=== PATIENT | female | born 1980 | race Caucasian/White ===

== ENCOUNTER 2018-11-11 17:23 | Emergency (ER) | payer SELFPAY ==
[~2018-11-11] VITALS: Ht 165.1 cm; Wt 49.9 kg
[~2018-11-11 17:23] MED LIST: AZIT250T PO; BENZ100C PO; CEPH-264 PO; GUAI600T47 PO; PRED20TA PO; PROM118S5 PO; TRAM-48 PO
[2018-11-11] MEDS ORDERED: diphenhydrAMINE 50 MG/ML VIAL IVP ONE (18:00)
[2018-11-11] MEDS ORDERED: DEXAMETHASONE SOD PHOS 10 MG/ML VIAL IV ONE (18:00)
[2018-11-11] MEDS ORDERED: METOCLOPRAMIDE HCL 10 MG/2 ML VIAL. IV ONE (18:00)
[2018-11-11] MEDS ORDERED: IV NORMAL SALINE 1,000ML 1,000 ML IV ONE (18:00)
[2018-11-11] MEDS ORDERED: KETOROLAC 15 MG/ML VIAL. IV ONE (18:00)
[2018-11-11 18:15] LABS: BILIRUBIN,URINE NEG (NEG); CLARITY,URINE CLOUDY; COLOR,URINE YELLOW; GLUCOSE,URINE NEG (NEG)
[2018-11-11 18:16] LABS: NITRITE,URINE POS (NEG); UROBILINOGEN,URINE 0.2 mg/dL (0.2 mg/dL)
[2018-11-11 18:17] LABS: BACTERIA,URINE MANY /HPF (0-FEW); SQUAMOUS EPITHELIAL CELL,UR OCC /LPF; WBC,URINE TNTC /HPF (0-4)
[2018-11-11 18:18] LABS: BASO % 0 % (0-3); EOS % 0 % (0-3); HEMATOCRIT 38.4 % (36.0-47.0); HEMOGLOBIN 13.1 g/dL (12.0-15.5); LYMPH # 0.9 x10^3/uL (1.0-4.8); LYMPH % 8 % (24-48); MEAN CORPUSCULAR HEMOGLOBIN 34 pg (25-35); MEAN CORPUSCULAR HGB CONC 34 g/dL (31-37); MEAN CORPUSCULAR VOLUME 100 fL (79-100); MONO # 2.1 x10^3/uL (0.0-1.1); MONO % 17 % (0-9); NEUT # 9.3 x10^3uL (1.8-7.7); NEUT % 75 % (31-73); PLATELET COUNT 127 x10^3/uL (140-400); RED BLOOD COUNT 3.84 x10^6/uL (3.50-5.40); RED CELL DISTRIBUTION WIDTH 13.2 % (11.5-14.5); WHITE BLOOD COUNT 12.4 x10^3/uL (4.0-11.0)
--- NOTE | 2018-11-11 18:21 | PHYS DOC ---
Past History Past Medical History: No Pertinent History (FELIPE GONZALEZ DO) Past Surgical History: Tubal ligation (FELIPE GONZALEZ DO) Smoking: Less than 1pk/day Alcohol Use: None Drug Use: Marijuana (FELIPE GONZALEZ DO) Adult General Chief Complaint Chief Complaint: FLANK PAIN HPI HPI Patient is a previously healthy 38 female who presents with bilateral flank pain started last week. She states that it has been progressive with acute worsening two days ago. Movement, coughing, and laughing make the pain worse. Nothing has really alleviated the pain. 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 She has had one episode of emesis but denies nausea. No changes in bowel habits and is not experiencing dysuria or hematuria. She is not experiencing back pain. Both she and her partner notice that she will have drenching night sweats that awake her from sleep. She did have a bout of gastroenteritis previously but has otherwise felt well. She has a reported weight loss of 10 lbs since that sickness however. Last menstrual period was approximately 2 weeks ago and she does not believe she could be . (FELIPE GONZALEZ DO) Review of Systems Review of Systems Constitutional: Reports night sweats and chills. HENT: Denies nasal congestion or sore throat. Respiratory: Denies cough or shortness of breath Cardiovascular: Denies chest pain or palpitations GI: Reports bilateral flank pain which episode of emesis. Denies nausea, diarrhea, constipation : Denies dysuria or hematuria Musculoskeletal: Denies back pain or joint pain Neurologic: Reports mild headache. Denies focal weakness or sensory changes Complete systems were reviewed and found to be within normal limits, except as documented in this note. (FELIPE GONZALEZ DO) Current Medications Current Medications Current Medications Medications (Trade) Dose Ordered Sig/Ramone Start Time Stop Time Status Last Admin Dose Admin Dexamethasone Sodium Phosphate (Decadron) 10 mg 1X ONCE 11/11/18 18:00 11/11/18 18:01 DC Diphenhydramine HCl (Benadryl) 25 mg 1X ONCE 11/11/18 18:00 11/11/18 18:01 DC Ketorolac Tromethamine (Toradol 15mg Vial) 15 mg 1X ONCE 11/11/18 18:00 11/11/18 18:01 DC Metoclopramide HCl (Reglan Vial) 10 mg 1X ONCE 11/11/18 18:00 11/11/18 18:01 DC Sodium Chloride 1,000 ml @ 1,000 mls/hr 1X ONCE 11/11/18 18:00 11/11/18 18:59 (FELIPE GONZALEZ DO) Allergies Allergies Allergies Coded Allergies Type Severity Reaction Last Updated Verified hydrocodone Adverse Reaction Unknown Nausea and Vomiting 11/11/18 Yes (FELIPE GONZALEZ DO) Physical Exam Physical Exam Constitutional: Well developed, well nourished, no acute distress, non-toxic appearance HENT: Normocephalic, atraumatic, oropharynx moist Eyes: EOMI, conjunctiva normal, no discharge Cardiovascular: Heart rate normal, regular rhythm Lungs & Thorax: Bilateral breath sounds clear to auscultation, no wheezing Abdomen: Tenderness to palpation bilateral flank regions. No CVA tenderness. No obvious abdominal tenderness. No rebound, rigidity, or guarding Skin: Warm, dry, no erythema, no rash Extremities: Radial pulses +2 bilaterally. No edema or tenderness bilateral lower extremities Neurologic: Alert and oriented Psychologic: Affect normal, judgement normal, mood normal (FELIPE GONZALEZ DO) Current Patient Data Lab Results Laboratory Tests Test 11/11/18 18:01 POC Urine HCG, Qualitative hcg negative (Negative) (FELIPE GONZALEZ DO) EKG EKG [] (FELIPE GONZALEZ DO) Radiology/Procedures Radiology/Procedures [] (FELIPE GONZALEZ DO) Impressions: PROCEDURE: CT ABDOMEN PELVIS WO CONTRAST CT abdomen pelvis without contrast dated 11/11/2018. No comparison available. CLINICAL INDICATION: Bilateral flank pain and hematuria. TECHNIQUE: Contiguous axial imaging of the abdomen and pelvis performed without the administration of IV or oral contrast. One or more of the following individualized dose reduction techniques were utilized for this examination: 1. Automated exposure control 2. Adjustment of the mA and/or kV according to patient size 3. Use of iterative reconstruction technique. FINDINGS: Limited images of lung bases are clear. Heart size within normal limits. No pleural or pericardial effusion. Solid abdominal viscera not well evaluated in the absence of contrast material. No apparent attenuation abnormality of the liver or spleen. Pancreas, adrenal glands, gallbladder unremarkable. Kidneys appear somewhat enlarged. No calcific renal or ureteral stone. No hydronephrosis. Minimal inflammatory stranding in the perinephric fat. Unopacified GI tract normal in caliber and contour. No focal bowel wall thickening. No inflammatory stranding in the mesentery. Appendix normal in caliber. No ascites or lymphadenopathy. Abdominal aorta normal in caliber. Images of the pelvis show nondistended urinary bladder. There is mild diffuse bladder wall thickening. No calcific bladder stone. Uterus is unremarkable. There is a heterogeneous low-density focus along the posterior right margin of the uterus that is probably related to the right ovary, measuring up to 4.4 cm maximum dimension. No significant free fluid. No pelvic lymphadenopathy. Bone windows show no acute findings. IMPRESSION: 1. No acute abnormality of abdomen or pelvis. No renal stone or hydronephrosis. 2. Heterogeneous nodular focus at the right adnexa could be related to a complex cystic lesion associated with the right ovary. If indicated, pelvic ultrasound could better evaluate. Electronically signed by: Felipe Samuels MD (11/11/2018 6:46 PM) [facility] (LUCY ALFONSO Jr., DO) Course & Med Decision Making Course & Med Decision Making Pertinent Labs and Imaging studies reviewed. (See chart for details) Patient is a previously healthy 38 year old female who presents with bilateral flank pain of 1 weeks duration that became worse 2 days ago. She denies any urinary symptoms, back pain, constipation or diarrhea although she has had one episode of emesis prior to arrival. On physical exam, she is tender to palpation on b/l flanks without CVA tenderness. CBC, Lipase, CMP pending at this time. HCG negative. Pain addressed with interval improvement. Fluids started. UA positive for blood, leukocyte esterase and nitrites. Empiric antibiotics given. CT of abdomen and pelvis ordered to further evaluate. Patient discussed and handed off to Dr. Alfonso for further evaluation and final disposition. Discussed current findings and plan with patient and family, who acknowledge understanding and agreement. [] (FELIPE GONZALEZ DO) Dragon Disclaimer Dragon Disclaimer This electronic medical record was generated, in whole or in part, using a voice recognition dictation system. (FELIPE GONZALEZ DO) Departure Departure: Impression: Primary Impression: UTI (urinary tract infection) Additional Impression: Bilateral flank pain Disposition: HOME, SELF-CARE Condition: STABLE Referrals: PCP,NO (PCP) Patient Instructions: Flank Pain, Urinary Tract Infection Scripts Sulfamethoxazole/Trimethoprim (BACTRIM DS TABLET) 1 Each Tablet 1 TAB PO BID for infection, #20 TAB Prov: LUCY ALFONSO Jr. DO 11/11/18 Diclofenac Sodium (DICLOFENAC SODIUM) 50 Mg Tablet.dr 1 TAB PO BID PRN for PAIN, #20 TAB Prov: LUCY ALFONSO Jr. DO 11/11/18 Orphenadrine Citrate (ORPHENADRINE CITRATE) 100 Mg Tablet.er 1 TAB PO BID PRN for MUSCLE SPASMS, #14 TAB Prov: LUCY ALFONSO Jr. DO 11/11/18 Tramadol Hcl (TRAMADOL HCL) 50 Mg Tablet 50 MG PO PRN Q6HRS PRN for PAIN, #12 TAB Prov: LUCY ALFONSO Jr. DO 11/11/18 Problem Qualifiers Primary Impression: UTI (urinary tract infection) Urinary tract infection type: site unspecified Hematuria presence: with hematuria Qualified Codes: N39.0 - Urinary tract infection, site not specified; R31.9 - Hematuria, unspecified FELIPE GONZALEZ DO November 11, 2018 18:21 LUCY ALFONSO Jr. DO November 11, 2018 18:54
[2018-11-11 18:32] LABS: ALBUMIN 3.1 g/dL (3.4-5.0); ALBUMIN/GLOBULIN RATIO 0.8 (1.0-1.7); CALCIUM 8.4 mg/dL (8.5-10.1); CREATININE 0.8 mg/dL (0.6-1.0); GFR 81.2; MAGNESIUM 1.7 mg/dL (1.8-2.4); POTASSIUM 3.5 mmol/L (3.5-5.1); TOTAL BILIRUBIN 0.2 mg/dL (0.2-1.0); TOTAL PROTEIN 6.8 g/dL (6.4-8.2)
--- NOTE | 2018-11-11 18:48 | RAD ---
CT abdomen pelvis without contrast dated 11/11/2018. No comparison available. CLINICAL INDICATION: Bilateral flank pain and hematuria. TECHNIQUE: Contiguous axial imaging of the abdomen and pelvis performed without the administration of IV or oral contrast. One or more of the following individualized dose reduction techniques were utilized for this examination: 1. Automated exposure control 2. Adjustment of the mA and/or kV according to patient size 3. Use of iterative reconstruction technique. FINDINGS: Limited images of lung bases are clear. Heart size within normal limits. No pleural or pericardial effusion. Solid abdominal viscera not well evaluated in the absence of contrast material. No apparent attenuation abnormality of the liver or spleen. Pancreas, adrenal glands, gallbladder unremarkable. Kidneys appear somewhat enlarged. No calcific renal or ureteral stone. No hydronephrosis. Minimal inflammatory stranding in the perinephric fat. Unopacified GI tract normal in caliber and contour. No focal bowel wall thickening. No inflammatory stranding in the mesentery. Appendix normal in caliber. No ascites or lymphadenopathy. Abdominal aorta normal in caliber. Images of the pelvis show nondistended urinary bladder. There is mild diffuse bladder wall thickening. No calcific bladder stone. Uterus is unremarkable. There is a heterogeneous low-density focus along the posterior right margin of the uterus that is probably related to the right ovary, measuring up to 4.4 cm maximum dimension. No significant free fluid. No pelvic lymphadenopathy. Bone windows show no acute findings. IMPRESSION: 1. No acute abnormality of abdomen or pelvis. No renal stone or hydronephrosis. 2. Heterogeneous nodular focus at the right adnexa could be related to a complex cystic lesion associated with the right ovary. If indicated, pelvic ultrasound could better evaluate. Electronically signed by: Felipe Samuels MD (11/11/2018 6:46 PM) [facility]
[2018-11-11] MEDS ORDERED: cefTRIAXone SODIUM 1 GM VIAL ONE (18:58)
[2018-11-11] MEDS ORDERED: IV NORMAL SALINE 50ML 50 ML ONE (18:58)
[2018-11-11] MEDS ORDERED: SULF1TAB24 PO (19:02)
[2018-11-11] MEDS ORDERED: TRAM50TA PO (19:02)
[2018-11-11] MEDS ORDERED: ORPH-16 PO (19:02)
[2018-11-11] MEDS ORDERED: DICL50TA4 PO (19:02)
[2018-11-11 19:20] VITALS: BP 105/53
== END 2018-11-11 19:22 | disposition home or self-care (01) ==
LOC: ER 17:23
DX: N39.0 Urinary tract infection, site not specified (principal); R31.9 Hematuria, unspecified; R11.11 Vomiting without nausea; F17.210 Nicotine dependence, cigarettes, uncomplicated; Z98.51 Tubal ligation status; Z88.5 Allergy status to narcotic agent
CPT/HCPCS: 36415; 74176; 80053; 81001; 81025; 83690; 83735; 85025; 87086; 96361; 96374; 96375; 99285; J0696; J1100; J1200; J1885; J2765; 87186; J7030

== ENCOUNTER 2020-07-06 04:04 | Emergency (ER) | payer SELFPAY ==
[~2020-07-06] VITALS: Ht 165.1 cm; Wt 52.3 kg
[2020-07-06 04:04] VITALS: BP 121/67
[~2020-07-06 04:04] MED LIST changes: +DICL50TA4 PO; +ORPH-16 PO; +SULF1TAB24 PO; +TRAM50TA PO
--- NOTE | 2020-07-06 04:09 | PHYS DOC ---
Past History Past Medical History: No Pertinent History (EN HALE MD) Past Surgical History: Tubal ligation (EN HALE MD) Smoking: Less than 1pk/day Alcohol Use: None Drug Use: Marijuana (EN HALE MD) General Adult HPI: HPI: ".. I was just sitting on the couch.. playing a game on my phone.. about a day and 1/2 ago..and got this bad pain.. on the lt. side of my chest.. It s never gone away...and it goes down with Ibuprofen.. but never gone away..I could not sleep because of the pain.. I can't lay... down because I get short of breath.. and pain gets worse..." Patient is a 40 year old female who presents with above hx and complaints left chest wall pain. Pain is located along the anterior axillary line approximately T6. Deep breaths seem to make the pain worse. Movement seems to make the pain worse. Patient cannot localize pain to a designated repeatable site. Patient denies any trauma. Patient denies any travel or specific ill contacts. Patient does smoke tobacco. Patient denies history of cardiac disease or pulmonary embolism or DVT. No family members of early onset of cardiac disease or coagulopathy. No recent travel outside the [place] area. No specific ill contacts. Patient denies any fever or chills. Pt. follows with Dr. Magdaleno. No history immunosuppression.. (EN HALE MD) Review of Systems: Review of Systems: Constitutional: Denies fever or chills Eyes: Denies change in visual acuity HENT: Denies nasal congestion or sore throat Respiratory: Denies cough or shortness of breath Cardiovascular: Complaints of left chest wall pain GI: Denies abdominal pain, nausea, vomiting, bloody stools or diarrhea : Denies dysuria Musculoskeletal: Denies back pain or joint pain Integument: Denies rash Neurologic: Denies headache, focal weakness or sensory changes Endocrine: Denies polyuria or polydipsia Lymphatic: Denies swollen glands Psychiatric: Denies depression or anxiety (EN HALE MD) Family History: Family History: Noncontributory to presentation (EN HALE MD) Current Medications: Current Meds: See nursing for home meds (EN HALE MD) Allergies: Allergies: Allergies Coded Allergies Type Severity Reaction Last Updated Verified hydrocodone Adverse Reaction Unknown Nausea and Vomiting 11/11/18 Yes (EN HALE MD) Physical Exam: PE: Constitutional: Moderate acute distress, non-toxic appearance. [] HENT: Normocephalic, atraumatic, bilateral external ears normal, oropharynx moist, no oral exudates, nose normal. [] Eyes: PERRLA, EOMI, conjunctiva normal, no discharge. [] Neck: Normal range of motion, no tenderness, supple, no stridor. [] Cardiovascular:Heart rate regular rhythm, no murmur [] Lungs & Thorax: Bilateral breath sounds equal apex with few scattered wheezes on auscultation []. The patient localizes chest wall pain to the anterior axillary line approximately T6-T7. Abdomen: Bowel sounds normal, soft, no tenderness, no masses, no pulsatile masses. Old surgical scars. Skin: Warm, dry, no erythema, no rash. [] Back: No tenderness, no CVA tenderness. [] Extremities: No tenderness, no cyanosis, no clubbing, ROM intact, no edema. No cording appreciated Neurologic: Alert and oriented X 3, normal motor function, normal sensory function, no focal deficits noted. [] Psychologic: Affect anxious,, judgement normal, mood normal. [] (EN HALE MD) EKG: EKG: My interpretation EKG shows a sinus rhythm at 72 bpm. No acute morphology. [] (EN HALE MD) Radiology/Procedures: Radiology/Procedures: [address] [address] IMAGING REPORT Signed PATIENT: RACHEL OCAMPO ACCOUNT: [id number] : 1980 LOCATION: ER AGE: 40 SEX: F EXAM STATUS: REG ER ORD. PHYSICIAN: EN HALE MD REASON: Chest pain, short of air, cough, congestion PROCEDURE: CHEST PA & LATERAL EXAM: PA and Lateral Views of the Chest DATE: 07/06/2020 4:23 AM INDICATION: Chest pain, short of air, cough, congestion COMPARISON: No Prior FINDINGS: The heart is not enlarged. Mediastinal and hilar contours are normal. No focal parenchymal airspace opacity. No pleural effusion or pneumothorax. IMPRESSION: 1. No radiographic evidence for acute cardiopulmonary process. Electronically signed by: Sreekanth Streeter MD (07/06/2020 5:02 AM) [facility] DICTATED AND SIGNED BY: SREEKANTH STREETER MD DATE: 07/06/20 0501 CC: EN HALE MD; STEVE MAGDALENO MD ~MTH0 0 My interpretation chest x-ray shows essentially normal cardiac silhouette. Left upper lobe nodule. No pulmonary infiltrate appreciated. No rib fracture noted. Compared to previous films on 10-07. Has a left upper lobe pulmonary nodule essentially unchanged from previous film. (EN HALE MD) Heart Score: HEART Score for Chest Pain: HEART Score for Chest Pain Response (Comments) Value History Slighlty/Non-Suspicious 0 ECG Normal 0 Age < 45 0 Risk Factors 1 or 2 Risk Factors 1 Troponin < Normal Limit 0 Total 1 Risk Factors: Risk Factors: DM, Current or recent (<one month) smoker, HTN, HLP, family history of CAD, obesity. Risk Scores: Score 0 - 3: 2.5% MACE over next 6 weeks - Discharge Home Score 4 - 6: 20.3% MACE over next 6 weeks - Admit for Clinical Observation Score 7 - 10: 72.7% MACE over next 6 weeks - Early Invasive Strategies (EN HALE MD) Course & Med Decision Making: Course & Med Decision Making Pertinent Labs and Imaging studies reviewed. (See chart for details) Pt. encouraged to stop smoking both Tobacco and Marijuana. Pt. take tylenol and ibuprofen for pain. Follow up with primary. Impression: 1. Chest wall pain 2. Lt. Apical Pulmonary nodule 3. Tobacco and Marijuana Use [] (EN HALE MD) Course & Med Decision Making 40-year-old female who had presented with chest pain to previous provider. CT angiogram pending at the time of signout. CT angiogram negative. EKG reviewed by myself shows sinus rhythm with a regular rate. ST segments congruent. Not suggestive of acute ischemia. Troponin was within normal limits. On reexamination she is resting comfortably in examination room without any distress. I explained to her the results and recommended she follow-up with her doctor in 1 to 2 days. She is to return if she has worsening pain or if she is concerned for any reason. (JAMAR JOAQUIN MD) [place] Disclaimer: Aide Disclaimer: This electronic medical record was generated, in whole or in part, using a voice recognition dictation system. (EN HALE MD) Departure Departure: Impression: Primary Impression: Chest wall pain Disposition: 01 DC HOME SELF CARE/HOMELESS Condition: STABLE Referrals: STEVE MAGDALENO MD (PCP) Aide Disclaimer This chart was dictated in whole or in part using Voice Recognition software in a busy, high-work load, and often noisy Emergency Department environment. It may contain unintended and wholly unrecognized errors or omissions. (EN HALE MD) EN HALE MD Jul 06, 2020 04:09 JAMAR JOAQUIN MD Jul 06, 2020 06:36
[2020-07-06] MEDS ORDERED: IV RINGERS SOLUTION,LACTATED 1,000 ML IV SCH (04:30)
[2020-07-06] MEDS ORDERED: KETOROLAC 30 MG/ML VIAL. IVP ONE (04:30)
[2020-07-06] MEDS ORDERED: ASPIRIN CHEWABLE 81 MG TABLET. PO ONE (04:30)
--- NOTE | 2020-07-06 04:43 | EKG ---
[address] [address] Test Date: 2020-07-06 Test Time: 04:36:38 Pat Name: RACHEL OCAMPO Department: Room: Gender: F Chuck Tender: : 1980 Requested By: EN HALE Order Number: [id number] Reading MD: Measurements Intervals [place] Rate: 72 P: 66 MI: 176 QRS: 68 QRSD: 76 T: 52 QT: 366 QTc: 402 Interpretive Statements SINUS RHYTHM NORMAL ECG RI6.02 No previous ECG available for comparison
[2020-07-06 04:59] LABS: BASO # 0.1 x10^3/uL (0.0-0.2); BASO % 1 % (0-3); EOS # 0.1 x10^3/uL (0.0-0.7); EOS % 1 % (0-3); HEMOGLOBIN 13.4 g/dL (12.0-15.5); LYMPH # 3.8 x10^3/uL (1.0-4.8); LYMPH % 31 % (24-48); MEAN CORPUSCULAR HEMOGLOBIN 34 pg (25-35); MEAN CORPUSCULAR HGB CONC 34 g/dL (31-37); MEAN CORPUSCULAR VOLUME 100 fL (79-100); MONO # 1.4 x10^3/uL (0.0-1.1); MONO % 12 % (0-9); NEUT # 6.9 x10^3uL (1.8-7.7); NEUT % 56 % (31-73); PLATELET COUNT 165 x10^3/uL (140-400); RED CELL DISTRIBUTION WIDTH 13.8 % (11.5-14.5); WHITE BLOOD COUNT 12.3 x10^3/uL (4.0-11.0)
--- NOTE | 2020-07-06 05:04 | RAD ---
EXAM: PA and Lateral Views of the Chest DATE: 07/06/2020 4:23 AM INDICATION: Chest pain, short of air, cough, congestion COMPARISON: No Prior FINDINGS: The heart is not enlarged. Mediastinal and hilar contours are normal. No focal parenchymal airspace opacity. No pleural effusion or pneumothorax. IMPRESSION: 1. No radiographic evidence for acute cardiopulmonary process. Electronically signed by: Sreekanth Mccollum MD (07/06/2020 5:02 AM) [facility]
[2020-07-06 05:05] LABS: CREATININE 0.7 mg/dL (0.6-1.0); GFR 93.6
[2020-07-06 05:08] LABS: AMPHETAMINE/METHAMPHETAMINE NEG (NEG); BARBITURATES NEG (NEG); BENZODIAZEPINES NEG (NEG); CANNABINOIDS POS (NEG); COCAINE NEG (NEG); METHADONE NEG (NEG); OPIATES NEG (NEG); PHENCYCLIDINE NEG (NEG)
[2020-07-06 05:11] LABS: BACTERIA,URINE 0 /HPF (0-FEW); BILIRUBIN,URINE NEG (NEG); CLARITY,URINE CLEAR; COLOR,URINE YELLOW; GLUCOSE,URINE NEG (NEG); NITRITE,URINE NEG (NEG); SQUAMOUS EPITHELIAL CELL,UR FEW /LPF; UROBILINOGEN,URINE 0.2 mg/dL (0.2 mg/dL); WBC,URINE OCC /HPF (0-4)
[2020-07-06 05:18] LABS: ALBUMIN 3.3 g/dL (3.4-5.0); DIRECT BILIRUBIN 0.1 mg/dL (0.0-0.2); MAGNESIUM 1.9 mg/dL (1.8-2.4); TOTAL BILIRUBIN 0.3 mg/dL (0.2-1.0); TOTAL PROTEIN 6.4 g/dL (6.4-8.2)
[2020-07-06] MEDS ORDERED: CONTRAST GIVEN. MC PRN (05:45)
[2020-07-06] MEDS ORDERED: IOHEXOL 350 MG/ML 100 ML VIAL. IV ONE (05:45)
--- NOTE | 2020-07-06 06:08 | RAD ---
EXAM: CT chest with contrast - pulmonary embolus protocol CLINICAL HISTORY: Pleuritic chest wall pain, mostly left sided COMPARISON: None. TECHNIQUE: CT of the chest following the administration of intravenous contrast during the pulmonary arterial phase. Axial, coronal and sagittal reformatted images were generated including MIP images. ---PQRS compliance statement - One or more of the following individualized dose reduction techniques were utilized for this study: 1. Automated exposure control 2. Adjustment of the mA and/or kV according to patient size 3. Use of iterative reconstruction technique--- FINDINGS: CHEST: Diagnostic quality: Adequate. Pulmonary emboli: None seen Right heart strain: None Pulmonary arteries: Normal in caliber. Heart is not enlarged. No pericardial effusion. No pleural effusion or pneumothorax. Linear opacities in the lingula and left lower lobe likely scarring/atelectasis. Emphysematous change s are seen. Groundglass opacities are seen in the upper lobes bilaterally. No suspicious lung nodule or mass is seen. Prominent mediastinal and hilar lymph nodes, likely reactive. Bilateral breast implants are seen. Visualized Upper abdomen: Unremarkable Bones: Unremarkable IMPRESSION: 1. No evidence for acute pulmonary embolus. 2. Groundglass opacities bilaterally, predominantly in the upper lobes, likely multifocal consolidat andreas process such as pneumonia. Prominent hilar lymph nodes likely reactive. Electronically signed by: Sreekanth Mccollum MD (07/06/2020 6:05 AM) [facility]
== END 2020-07-06 06:22 | disposition home or self-care (01) ==
LOC: ER 04:04
DX: R07.89 Other chest pain (principal); R91.1 Solitary pulmonary nodule; F17.200 Nicotine dependence, unspecified, uncomplicated; F12.10 Cannabis abuse, uncomplicated; Z88.5 Allergy status to narcotic agent
CPT/HCPCS: 36415; 71046; 71275; 80048; 80061; 80076; 80307; 81001; 81025; 82550; 83690; 83735; 83880; 84484; 85025; 85379; 85610; 85730; 93005; 96361; 96374; 99285; J1885; J7120; Q9967

== ENCOUNTER 2021-02-27 02:34 | Emergency (ER) | payer SELFPAY ==
[~2021-02-27] VITALS: Ht 165.1 cm; Wt 54.0 kg
[2021-02-27] MEDS ORDERED: CLIN300C9 PO (02:45)
[2021-02-27] MEDS ORDERED: oxyCODONE/APAP 5/325 1 TAB TABLET PO ONE (02:45)
[2021-02-27] MEDS ORDERED: CLINDAMYCIN HCL 150 MG CAPSULE PO ONE (02:45)
--- NOTE | 2021-02-27 02:46 | PHYS DOC ---
Past History Past Medical History: No Pertinent History Past Surgical History: Tubal ligation Smoking: Less than 1pk/day Alcohol Use: None Drug Use: Marijuana Adult General HPI HPI Patient is an otherwise healthy 40-year-old female who presents with swelling and redness around left eye that started yesterday. States that it does hurt, 3 out of 10, dull and achy in nature. Denies any changes in vision. Denies any headache, neck pain, pain or trouble swallowing, chest pain, shortness of breath, abdominal pain, nausea, vomiting. Review of Systems Review of Systems Review of systems otherwise unremarkable except noted in HPI Allergies Allergies Allergies Coded Allergies Type Severity Reaction Last Updated Verified hydrocodone Adverse Reaction Unknown Nausea and Vomiting 11/11/18 Yes Physical Exam Physical Exam Constitutional: Well developed, well nourished, no acute distress, non-toxic appearance. [] HENT: Normocephalic, atraumatic, bilateral external ears normal, oropharynx moist, no oral exudates, nose normal. [] Eyes: PERRLA, EOMI, conjunctiva normal, no discharge, left periorbital swelling and erythema, no changes in vision. [] Neck: Normal range of motion, no tenderness, supple, no stridor, no lymphadenopathy. [] Cardiovascular:Heart rate regular rhythm, no murmur [] Neurologic: Alert and oriented X 3, no focal deficits noted. [] Psychologic: Affect normal, judgement normal, mood normal. [] EKG EKG [] Radiology/Procedures Radiology/Procedures [] Heart Score C/O Chest Pain: No Risk Factors: Risk Factors: DM, Current or recent (<one month) smoker, HTN, HLP, family history of CAD, obesity. Risk Scores: Risk Factors: DM, Current or recent (<one month) smoker, HTN, HLP, family h istory of CAD, obesity. Course & Med Decision Making Course & Med Decision Making Patient is a 40-year-old female who presents with swelling around her left eye Vital signs not concerning. Physical exam noted above. Patient started on clindamycin for periorbital cellulitis. Given pain medicine. Advised on symptom management at home. Advised to follow-up first thing Saturday with primary care physician to set up a follow-up appointment. Gave return precautions to the ED. Patient grateful, verbalized understanding and agreed with plan of discharge. [] Dragon Disclaimer Dragon Disclaimer This electronic medical record was generated, in whole or in part, using a voice recognition dictation system. Departure Departure: Impression: Primary Impression: Periorbital cellulitis Disposition: HOME / SELF CARE / HOMELESS Condition: GOOD Referrals: STEVE SANTOS MD (PCP) Patient Instructions: Periorbital Cellulitis Additional Instructions: Thank you for coming into the emergency department tonight and allowing us to t bronson care of you. Please read the attached information to go back over things we discussed. Please take all your antibiotics as prescribed until gone. Please begin a Tylenol, ibuprofen, Benadryl and ice regimen as needed. Please follow- up as soon as you can with your primary care physician to set up a post ER follow-up visit for reevaluation. Please come back to the ED with new or concerning symptoms as discussed. Scripts Clindamycin Hcl (CLINDAMYCIN HCL) 300 Mg Capsule 1 CAP PO Q6HRS for cellulitis for 10 Days, #40 CAP Prov: CHAVEZ VASQUES MD 02/27/21 CHAVEZ VASQUES MD Feb 27, 2021 02:46
[2021-02-27 03:15] VITALS: BP 112/61
[2021-02-27] MEDS ORDERED: ONDANSETRON ODT 4 MG TAB.RAPDIS PO ONE (03:15)
== END 2021-02-27 03:15 | disposition home or self-care (01) ==
LOC: ER 02:34
DX: L03.213 Periorbital cellulitis (principal); F12.10 Cannabis abuse, uncomplicated; F17.200 Nicotine dependence, unspecified, uncomplicated; Z98.51 Tubal ligation status
CPT/HCPCS: 99284; Q0162

== ENCOUNTER 2021-05-18 12:15 | Emergency (ER) | payer SELFPAY ==
[~2021-05-18] VITALS: Ht 165.1 cm; Wt 54.0 kg
[2021-05-18 12:15] VITALS: BP 118/87
[~2021-05-18 12:15] MED LIST changes: +CLIN-95 PO
[2021-05-18] MEDS ORDERED: CLINDAMYCIN HCL 150 MG CAPSULE PO ONE (12:45)
[2021-05-18] MEDS ORDERED: CLIN-95 PO (12:54)
--- NOTE | 2021-05-18 12:55 | PHYS DOC ---
Past History Past Medical History: No Pertinent History Past Surgical History: Tubal ligation Smoking: Less than 1pk/day Alcohol Use: None Drug Use: Marijuana General Adult EDM: Chief Complaint: EYE PROBLEMS HPI: HPI: 41-year-old female presents with right eye pain. She has been seen by a couple of providers for a swollen right eye that started as a swollen right upper eyelid. She was placed on erythromycin ointment and Keflex oral treatment. She has been taking these for 2 days and the swelling is worse. It now includes lower eyelid. She denies change in vision. She is just worried that it is getting worse and wants to know what to do. Review of Systems: Review of Systems: Constitutional: Denies fever or chills Eyes: Swollen right periorbital area HENT: Denies nasal congestion or sore throat Respiratory: Denies cough or shortness of breath Cardiovascular: Denies chest pain or edema GI: Denies abdominal pain, nausea, vomiting, bloody stools or diarrhea : Denies dysuria Musculoskeletal: Denies back pain or joint pain Integument: Denies rash Neurologic: Denies headache, focal weakness or sensory changes Endocrine: Denies polyuria or polydipsia Lymphatic: Denies swollen glands Psychiatric: Denies depression or anxiety Current Medications: Current Meds: Current Medications Medications (Trade) Dose Ordered Sig/Ramone Start Time Stop Time Status Last Admin Dose Admin Clindamycin HCl (Cleocin) 600 mg 1X ONCE 05/18/21 12:45 05/18/21 12:46 UNV 05/18/21 12:46 600 MG Allergies: Allergies: Allergies Coded Allergies Type Severity Reaction Last Updated Verified hydrocodone Adverse Reaction Unknown Nausea and Vomiting 11/11/18 Yes Physical Exam: PE: Constitutional: Well developed, well nourished, no acute distress, non-toxic appearance. [] HENT: Normocephalic, atraumatic, bilateral external ears normal, oropharynx moist, no oral exudates, nose normal. [] Eyes: PERRLA, EOMI, conjunctiva normal, erythema and warmth of the upper eyelid with surrounding edema of the lower eyelid of the right eye. [] Neck: Normal range of motion, no tenderness, supple, no stridor. [] Cardiovascular: Heart rate regular rhythm, no murmur [] Lungs & Thorax: Bilateral breath sounds clear to auscultation [] Abdomen: Bowel sounds normal, soft, no tenderness, no masses, no pulsatile masses. [] Skin: Warm, dry, no erythema, no rash. [] Back: No tenderness, no CVA tenderness. [] Extremities: No tenderness, no cyanosis, no clubbing, ROM intact, no edema. [] Neurologic: Alert and oriented X 3, normal motor function, normal sensory function, no focal deficits noted. [] Psychologic: Affect normal, judgement normal, mood anxious. [] Current Patient Data: Vital Signs: Vital Signs Date Time Temp Pulse Resp B/P (MAP) Pulse Ox O2 Delivery O2 Flow Rate FiO2 05/18/21 12:15 97.8 90 16 118/87 (97) 100 05/18/21 12:15 Room Air EKG: EKG: [] Radiology/Procedures: Radiology/Procedures: [] Heart Score: C/O Chest Pain: N/A Risk Factors: Risk Factors: DM, Current or recent (<one month) smoker, HTN, HLP, family history of CAD, obesity. Risk Scores: Score 0 - 3: 2.5% MACE over next 6 weeks - Discharge Home Score 4 - 6: 20.3% MACE over next 6 weeks - Admit for Clinical Observation Score 7 - 10: 72.7% MACE over next 6 weeks - Early Invasive Strategies Course & Med Decision Making: Course & Med Decision Making Pertinent Labs and Imaging studies reviewed. (See chart for details) The patient has been taking her oral and topical medications. This continues to look like periorbital cellulitis though unobstructed tear duct cannot be ruled out. I will change her medication to clindamycin for broader coverage. I have advised that if this does not start improving 48 hours that she needs to see an data processing clerk. Patient states verbal understanding. We will give her a dose of clindamycin in the ER as it is a holiday. She is stable for discharge at this time. [] Dragon Disclaimer: Dragmaria e Disclaimer: This electronic medical record was generated, in whole or in part, using a voice recognition dictation system. Departure Departure: Impression: Primary Impression: Periorbital cellulitis of right eye Disposition: HOME / SELF CARE / HOMELESS Condition: STABLE Referrals: STEVE SANTOS MD (PCP) Patient Instructions: Periorbital Cellulitis Scripts Clindamycin Hcl (CLINDAMYCIN HCL) 300 Mg Capsule 1 CAP PO TID for skin infection for 7 Days, #21 CAP Prov: MARGARITO GOSS DO 05/18/21 MARGARITO GOSS DO May 18, 2021 12:54
== END 2021-05-18 13:00 | disposition home or self-care (01) ==
LOC: ER 12:15
DX: L03.213 Periorbital cellulitis (principal); F17.200 Nicotine dependence, unspecified, uncomplicated; Z88.5 Allergy status to narcotic agent
CPT/HCPCS: 99283